=== PATIENT | male | born 1990 | race American Indian/Alaskan Native ===

== ENCOUNTER 2022-05-21 21:45 | Emergency (ER) | payer SELFPAY ==
[2022-05-22 06:22] VITALS: BP 124/70
--- NOTE | 2022-05-22 06:55 | Cat Scan Report ---
CT HEAD WITHOUT CONTRAST INDICATION / CLINICAL INFORMATION: headache. TECHNIQUE: CT head was performed without administration of intravenous contrast. All CT scans at this location are performed using CT dose reduction for ALARA by means of automated exposure control. COMPARISON: None available. FINDINGS: CEREBRAL HEMISPHERES: There is no evidence of large territorial infarction or significant abnormality of hobson-white matter differentiation. Ventricles within normal limits. No midline shift. Basal ciste rns patent. HEMORRHAGE: None. CEREBELLUM / BRAINSTEM: No significant abnormality. ORBITS: No significant abnormality. SOFT TISSUES: No significant abnormality. SKULL: No significant abnormality. PARANASAL SINUSES / MASTOID AIR CELLS: Normal as visualized. ADDITIONAL FINDINGS: None. IMPRESSION: 1. No acute intracranial abnormality. Signer Name: Onel Dickson II, MD Signed: 05/22/2022 6:51 AM Workstation Name: [id number]
--- NOTE | 2022-05-22 07:04 | Emergency Department Report ---
ED General Adult HPI - General Chief complaint: Headache Stated complaint: CHEST PAIN / NUMBNESS RT SIDE PUI?: No Time Seen by Provider: 05/22/22 06:26 Source: patient Mode of arrival: Ambulatory Limitations: No Limitations - History of Present Illness Initial comments: pt states "Thursday night I had a headache, I was feeling pain on the right side of my head radiating to my ear" pt states "I started noticing the right side of my mouth was numb and I couldn't chew yesterday" Pt has right side facial paralysis. No other deficits at this time, pt no acute distress noted. Pt ambulatory to triage. -: Gradual, days(s) Location: face Radiation: non-radiation Improves with: none Worsens with: none Associated Symptoms: denies: denies other symptoms, confusion, cough, diaphoresi s Treatments Prior to Arrival: none - Related Data Previous Rx's Medication Instructions Recorded Last Taken Type Glycerin/Propylene Glycol 15 ml OP QID #1 drops 05/22/22 Unknown Rx [Artificial Tears Drops] Mineral Oil/Petrolatum,White [Akwa 3.5 gm OP TID #1 05/22/22 Unknown Rx Tears Ointment] methylPREDNISolone [Medrol 4MG 4 mg PO DAILY #1 05/22/22 Unknown Rx DOSEPAK (21 tabs)] valACYclovir [Valtrex] 500 mg PO BID #20 tab 05/22/22 Unknown Rx Allergies Allergy/AdvReac Type Severity Reaction Status Date / Time No Known Allergies Allergy Unverified 05/21/22 22:47 ED Review of Systems ROS: Stated complaint: CHEST PAIN / NUMBNESS RT SIDE Other details as noted in HPI Constitutional: denies: chills, fever Eyes: denies: eye pain, eye discharge, vision change ENT: denies: ear pain, throat pain Respiratory: denies: cough, shortness of breath, wheezing Cardiovascular: denies: chest pain, palpitations Endocrine: no symptoms reported Gastrointestinal: denies: abdominal pain, nausea, diarrhea Genitourinary: denies: urgency, dysuria Musculoskeletal: denies: back pain, joint swelling, arthralgia Skin: denies: rash, lesions Neurological: denies: headache, weakness, paresthesias Psychiatric: denies: anxiety, depression Hematological/Lymphatic: denies: easy bleeding, easy bruising ED Past Medical Hx - Past Medical History Previous Medical History?: No Hx Hypertension: No - Surgical History Past Surgical History?: No - Social History Smoking Status: Never Smoker Substance Use Type: None - Medications Home Medications: Home Medications Medication Instructions Recorded Confirmed Last Taken Type Glycerin/Propylene Glycol 15 ml OP QID #1 drops 05/22/22 Unknown Rx [Artificial Tears Drops] Mineral Oil/Petrolatum,White [Akwa 3.5 gm OP TID #1 05/22/22 Unknown Rx Tears Ointment] methylPREDNISolone [Medrol 4MG 4 mg PO DAILY #1 05/22/22 Unknown Rx DOSEPAK (21 tabs)] valACYclovir [Valtrex] 500 mg PO BID #20 tab 05/22/22 Unknown Rx ED Physical Exam - General Limitations: No Limitations General appearance: alert, in no apparent distress - Head Head exam: Present: atraumatic, normocephalic - Eye Eye exam: Present: normal appearance - ENT ENT exam: Present: mucous membranes moist - Neck Neck exam: Present: normal inspection - Respiratory Respiratory exam: Present: normal lung sounds bilaterally. Absent: respiratory distress - Cardiovascular Cardiovascular Exam: Present: regular rate, normal rhythm. Absent: systolic murmur, diastolic murmur, rubs, gallop - GI/Abdominal GI/Abdominal exam: Present: soft, normal bowel sounds - Rectal Rectal exam: Present: deferred - Extremities Exam Extremities exam: Present: normal inspection - Back Exam Back exam: Present: normal inspection - Neurological Exam Neurological exam: Present: alert, oriented X3 - Expanded Neurological Exam Expanded Neurological exam: Present: other (right facial droop ) Patient oriented to: Present: person, place, time Motor strength exam: RUE: 3, LUE: 3, RLE: 3, LLE: 3 Best Eye Response ([place]): (4) open spontaneously Best Motor Response ([place]): (6) obeys commands Best Verbal Response (Dianne): (5) oriented [place] Total: 15 - Psychiatric Psychiatric exam: Present: normal affect, normal mood - Skin Skin exam: Present: warm, dry, intact, normal color. Absent: rash ED Course Vital Signs 05/21/22 05/22/22 22:49 06:20 Temperature 98.4 F Pulse Rate 116 H 87 Respiratory 20 18 Rate Blood Pressure 136/84 Blood Pressure 124/70 [Left] O2 Sat by Pulse 98 96 Oximetry Critical care attestation.: If time is entered above; I have spent that time in minutes in the direct care of this critically ill patient, excluding procedure time. ED Disposition Clinical Impression: Quinteros's palsy Disposition: 01 HOME / SELF CARE / HOMELESS Is pt being admited?: No Does the pt Need Aspirin: No Condition: Stable Instructions: Quinteros Palsy, Adult Referrals: KANA SALEEM MD [Primary Care Provider] - 3-5 Days
--- NOTE | 2022-05-22 10:07 | Electrocardiograph Report ---
[facility] Test Date: 2022-05-21 Test Time: 21:59:00 Pat Name: NILAY WILKS Department: Room: Gender: M Top Spotter: CHELSEA : 1990 Requested By: ANNA MARIE EARL Order Number: [id number] Reading MD: Vipul Stewart Measurements Intervals [place] Rate: 111 P: 32 NM: 162 QRS: -28 QRSD: 96 T: 11 QT: 349 QTc: 470 Interpretive Statements Sinus tachycardia Ventricular premature complex No previous ECG available for comparison Electronically Signed On 05-22-2022 10:07:30 EDT by Vipul Stewart
== END 2022-05-22 07:30 | disposition home or self-care (01) ==
LOC: ED 21:45
DX: G51.0 Bell's palsy (principal)
CPT/HCPCS: 70450; 93005; 99283